=== PATIENT | male | born 1950 | race Caucasian/White ===

== ENCOUNTER → 2019-10-02 15:27 | Outpatient (CLI) | payer MEDICARE, OTHER, SELFPAY ==
[2019-10-03 17:12] LABS: COVID19 Sendout Not Detected (Not Detect)
== END ==
PROVIDERS: PCP Family Medicine; Visit Provider Physician Assistant
DX: Z11.59 Encounter for screening for other viral diseases (principal)
CPT/HCPCS: 87635

== ENCOUNTER 2019-10-05 07:33 | Day surgery (SDC) | payer MEDICARE, OTHER, SELFPAY ==
[2019-10-05 07:45] VITALS: BP 140/80; PULSE 79; RESP 18; TEMP 36.4; O2SAT 99; BMI 30.4
--- NOTE | 2019-10-05 08:24 | PM.PREOP ---
Pre-operative Note COVID-19 COVID-19 status: Negative Result date/Date tested (Pos, Neg/Pending): 10/02/19 Interval Note History & Physical reviewed/Exam performed by Physician: Yes Changes to H&P: No ASA Class (for procedural sedation): II
[2019-10-05] MEDS: LACTATED RINGERS 1,000 ML 100 ML IV (08:30)
[2019-10-05] MEDS: MIDAZOLAM 5 MG/5 ML VIAL IV ×2 (08:30→08:42)
[2019-10-05] MEDS: fentaNYL 250 MCG/5 ML INJ IV ×2 (08:31→08:38)
--- NOTE | 2019-10-05 08:55 | PM.OP.ENDO ---
Operative Date/Time/Diagnoses Date of procedure: 10/05/19 Time of procedure: 08:55 Pre-op diagnosis: For positive fit test. This is his 1st colonoscopy. Post-op diagnosis: same (Sigmoid diverticulosis) Procedure & Clinicians Study performed: Colonoscopy Same procedure as scheduled: Yes Indications: Positive fit test. Surgeon: Steve Morales Procedure Notes SCOAP/Timeout: Performed Procedure in detail: The patient was placed in the left lateral decubitus position and underwent IV sedation directed by the surgeon consisting of fentanyl and Versed. Digital exam was unremarkable. Prostate is flat.. The scope was inserted and advanced through the rectum into the sigmoid, descending, transverse, and ascending colon. Sigmoid diverticulosis was noted.. The cecum was reached identified by the ileocecal valve and the appendiceal opening. The scope was gradually brought out. No Polyps were found. The scope ultimately was retroflexed in the rectum. The appearance was normal. The scope was removed and the patient tolerated the procedure well. Prep was very good. Scope withdrawal time: 7 minutes Sedation minutes: 22 Findings: diverticulosis (Sigmoid) Specimen(s): none sent Complications: none Post-procedure Recommendations: Colonscopy in 10 years Follow up: as needed Disposition: PACU
[2019-10-05 08:58] VITALS: BP 104/70; PULSE 71; RESP 16; TEMP 36.4; O2SAT 96
[2019-10-05 09:03] VITALS: BP 104/61; PULSE 70; RESP 17; O2SAT 96
[2019-10-05 09:08] VITALS: BP 103/63; PULSE 71; RESP 12; O2SAT 97
[2019-10-05 09:18] VITALS: BP 110/62; PULSE 66; RESP 17; O2SAT 95
[2019-10-05 09:31] VITALS: BP 114/60; PULSE 70; RESP 14; TEMP 36.2; O2SAT 95
== END 2019-10-05 09:53 | disposition home or self-care (01) ==
PROVIDERS: PCP Family Medicine; Referring Provider Family Medicine; Visit Provider Specialist
PROC: 0DJD8ZZ Inspection of Lower Intestinal Tract, Via Natural or Artificial Opening Endoscopic (ICD-10-PCS; CPT 45378; principal; 2019-10-05 08:45)
DX: R19.5 Other fecal abnormalities (principal); E11.9 Type 2 diabetes mellitus without complications; Z79.84 Long term (current) use of oral hypoglycemic drugs
CPT/HCPCS: 45378; 99152; J2250; J3010